=== PATIENT | male | born 1990 | race Hispanic/Latino ===

== ENCOUNTER 2019-09-23 14:58 | Emergency (ER) | payer OTHER, SELFPAY ==
[2019-09-23 15:13] VITALS: BP 80/50; PULSE 104; RESP 19; TEMP 36.3; O2SAT 99
--- NOTE | 2019-09-23 15:14 | ED.GENADULT ---
HPI - General Adult General Chief complaint: Nausea/Vomiting/Diarrhea Stated complaint: Vomiting/Nausea/Stomach pain Time Seen by Provider: 09/23/19 15:14 Source: patient Mode of arrival: ambulatory Limitations: no limitations History of Present Illness HPI narrative: 28-year-old male patient presents to the [facility] with complaints of nausea, vomiting, diarrhea and abdominal pain that started today. Patient states he has had issues with his gallbladder before in the past but states he has had an ultrasound in the past which did not show anything. Patient states he was supposed to get a CT with dye but never did. Patient denies any fevers that he is aware of. Patient states he has been unable to keep anything down. Patient is actively vomiting on arrival to the clinic today. Related Data Home Medications Medication Instructions Recorded Confirmed No Home Medications 09/23/19 09/23/19 Allergies Allergy/AdvReac Type Severity Reaction Status Date / Time No Known Allergies Allergy Unverified 09/23/19 15:23 Review of Systems Review of Systems: Narrative: CONSTITUTIONAL: Denies fever, chills, or sweats. EYES: Denies visual changes, redness, or discharge. ENT: Denies rhinorrhea, congestion, sore throat, or otalgia. CARDIOVASCULAR: Denies chest pain, palpitations, or edema. RESPIRATORY: Denies cough or dyspnea. GASTROINTESTINAL: Positive abdominal pain, nausea, vomiting, and diarrhea. GENITOURINARY: Denies dysuria or hematuria. SKIN: Denies rash or itching. MUSCULOSKELETAL: Denies back pain, joint pain, or myalgia. NEUROLOGIC: Denies headache, numbness, or weakness. PSYCHIATRIC: Denies anxiety or depression. PMFSH Social History Social History Gender identity (if verbalized by the patient): Male Exam Narrative: Exam Narrative: GENERAL: Well-appearing, well-nourished, and in no acute distress. HEAD: Normocephalic, atraumatic. EYES: PERRLA and EOMI. ENT: Nares clear, no rhinorrhea or epistaxis. Mucous membranes moist. NECK: Supple. No lymphadenopathy CHEST: Clear to auscultation. No respiratory distress. HEART: Regular rate and rhythm. No murmur heard. Normal peripheral pulses. ABDOMEN: Soft, flat, nondistended. No guarding, rebound tenderness, or rigid. No pulsatilla masses. Hypoactive bowel sounds present in all four quadrants. No organomegaly. Negative Staples?s sign. No periumbicial tenderness. No Supra public tenderness or distension. Good femoral pulses bilaterally. No hernia noted. No scars or surface trauma. EXTREMITIES: Normal range of motion. No edema. SKIN: Warm, dry, no rash. NEURO: No focal deficits. Alert and oriented x3. Course Vital Signs Vital signs: Vital Signs Temperature 36.3 C L 09/23/19 15:13 Pulse Rate 104 H 09/23/19 15:13 Respiratory Rate 19 09/23/19 15:13 Blood Pressure 80/50 L 09/23/19 15:13 Pulse Oximetry 99 09/23/19 15:13 Temperature 36.3 C L 09/23/19 15:13 Pulse Rate 104 H 09/23/19 15:13 Respiratory Rate 19 09/23/19 15:13 Blood Pressure 80/50 L 09/23/19 15:13 Pulse Oximetry 99 09/23/19 15:13 Transfer Transfered to: [facility] Transfer rationale: Nausea, vomiting, diarrhea and abdominal pain Accepting physician: Dr. Carroll Transfer comments: On spoke with the charge nurse at [facility] ER and gave her report on patient that we are sending over with complaints of nausea, vomiting, abdominal pain that started today. Patient is actively vomiting on arrival to the [facility] care. Patient was given 4 mg of ODT Zofran. Patient does have a below blood pressure of 80/50 and is currently looking for a ride to the ER however if he does not find a ride we will be sending my by EMS. Charge nurse verbalizes understanding denies any other questions or concerns at this time. Medical Decision Making Differential Diagnosis Differential Diagnosis: Differential diagnosis: Appendicitis, ovarian torsion, gallbladder disease, ovarian torsion
[2019-09-23] MEDS: ONDANSETRON HCL ODT 4 MG TABLET PO (15:17)
--- NOTE | 2019-09-23 15:29 | PC.NURSE ---
Pt found a friend to drive him to hospital, states after Zofran he is no longer nauseated, but still has RUQ pain. Lights dimmed for comfort while he awaits arrival of friend.
--- NOTE | 2019-09-23 15:58 | PC.NURSE ---
155- Pt decided to go by EMS- [facility] took pt. IV started
== END 2019-09-23 15:52 | disposition short-term general hospital (02) ==
PROVIDERS: Emergency Provider Nurse Practitioner Family
DX: R11.2 Nausea with vomiting, unspecified (principal)
CPT/HCPCS: 99215; A9270; G0463

== ENCOUNTER 2019-09-23 16:25 | Emergency (ER) | payer OTHER, SELFPAY ==
[2019-09-23 16:34] VITALS: BP 111/59; PULSE 101; RESP 16; TEMP 37.2; O2SAT 100
[2019-09-23 16:49] LABS: Basophils Percent Auto 0.3 % (0.2-1.2); Eosinophils Absolute Auto 0.1 K/mm3 (0-0.3); Eosinophils Percent Auto 0.5 % (0-4.4); Hemoglobin 17.1 g/dL (14.0-18.0); Immature Granulocyte Absolute 0.02 K/mm3 (0.00-0.031); Immature Granulocyte Percent A 0.2 % (0-0.5); Lymphocytes Absolute Auto 0.45 K/mm3 (0.9-3.2); Lymphocytes Percent Auto 4.7 % (18.3-44.2); Mean Corpuscular HGB Conc 34.9 g/dl (32-36); Mean Corpuscular Hemoglobin 30.4 pg (26-34); Monocytes Absolute Auto 0.7 K/mm3 (0.1-0.6); Monocytes Percent Auto 7.5 % (2.6-8.5); Neutrophils Absolute Auto 8.3 K/mm3 (1.3-6.7); Neutrophils Percent Auto 86.8 % (45.5-73.1); Platelet Count Result 320 k/mm3 (150-375); Red Blood Count 5.63 M/mm3 (4.6-6.20); Red Cell Distribution Width 12.5 % (11.5-14.5); White Blood Count 9.6 K/mm3 (4.5-10.0)
[2019-09-23 16:58] LABS: Alanine Aminotransferase 62 U/L (4-50); Albumin Level 4.8 g/dL (3.5-5.1); Alkaline Phosphatase 80 U/L (38-126); Aspartate Amino Transferase 39 U/L (17-59); Blood Urea Nitrogen 18 mg/dL (9-20); Calcium 9.7 mg/dL (8.4-10.2); Carbon Dioxide 23 mmol/L (22-30); Chloride 107 mmol/L (98-107); Estimated CRCL calculation 107 ml/min; Estimated Glomerular Filt Rate > 60; Glucose 95 mg/dL (75-110); Lipase 81 U/L (23-300); Sodium 138 mmol/L (137-145)
[2019-09-23 17:24] LABS: Add Urine Microscopic? YES; Appearance Urine Clear (Clear); Bilirubin Urine Negative (Negative); Blood Urine Negative (Negative); Color Urine Yellow (Yellow); Glucose Urine UA Negative (Negative); Ketones Urine Trace mg/dL (Negative); Leukocyte Esterase Ur Negative LEU/UL (Negative); Mucus Urine Rare /lpf; Nitrate Urine Negative (Negative); Protein Urine 1+ mg/dL (Negative); Specific Grav Ur 1.027 (1.001-1.035); Urobilinogen Urine Negative mg/dL (<2.0); WBC Urine 0-3 /hpf
[2019-09-23 17:52] VITALS: BP 107/55; PULSE 76; RESP 16; O2SAT 100
--- NOTE | 2019-09-23 19:07 | ED.GENADULT ---
HPI - General Adult General Chief complaint: Nausea/Vomiting/Diarrhea Stated complaint: N/V ABD PAIN FROM [facility] Time Seen by Provider: 09/23/19 17:41 Source: patient Mode of arrival: ambulatory Limitations: no limitations History of Present Illness HPI narrative: 28-year-old male Basically healthy Has been experiencing episodes of epigastric and right upper quadrant discomfort particularly following fatty meals for a while Biliary disease had been suspected by his PCP He is already had a gallbladder ultrasound which he reports looked fine He is also modified his diet to cut back on the fatty foods which were particularly troubling Today he had a somewhat worse than usual episode associated with some nausea The symptoms are currently resolved Plan discussed with his doctor was to perhaps do a HIDA scan Onset (ago): hour(s) Location: abdomen Radiation: non-radiation Severity: moderate Quality: other (crampy) Pain Consistency: intermittent and now resolved Exacerbating factors: eating Related Data Home Medications Medication Instructions Recorded Confirmed Adults Multivitamin 09/23/19 Allergies Allergy/AdvReac Type Severity Reaction Status Date / Time No Known Allergies Allergy Unverified 09/23/19 15:23 Review of Systems Constitutional: Constitutional: Reports no additional constitutional complaints, Denies chills, Denies fever(s) and Denies weakness ENT: Denies dysphagia and Denies vertigo Cardiovascular: Cardiovascular: Denies chest pain Respiratory: Respiratory: Denies cough and Denies dyspnea Gastrointestinal: Gastrointestinal: Reports as per HPI Genitourinary: Genitourinary: Denies dysuria and Denies urinary frequency Musculoskeletal: Musculoskeletal: Denies back pain and Denies myalgias Neurologic: Denies vertigo, Denies syncope and Denies weakness PMFSH Social History Social History Gender identity (if verbalized by the patient): Male Exam Const: General: healthy appearing, no acute distress and well developed Nutritional Appearance: well nourished Orientation/consciousness: patient oriented x3 (alert) and Other orientation findings (Alert) Limitations: no limitations HENMT: Head: normocephalic and atraumatic Ears: external ears normal General nose exam: No nasal discharge present and no epistaxis Face and sinus: face symmetric Mouth: Yes lip normal, Yes tongue normal and Yes moist mucous membranes Throat: other (No exudate, no erythema) Eyes: Conjunctivae: conjunctivae normal Sclera: sclerae normal EOM: EOMs intact bilaterally Neck: Neck: full ROM, no lymphadenopathy and supple Thyroid: thyroid normal Chest: Chest palpation & inspection: no tenderness Resp: Effort & Inspection: normal respiratory effort Auscultation: clear to auscultation bilaterally, no rales, no rhonchi, no wheezes and other (breath sounds equal) Cardio: Rate: regular rate Rhythm: regular rhythm Heart sounds: no gallops and no murmurs GI: Inspection: non-distended GI Palp: No abdominal tenderness, Yes Soft to palpation and No Tenderness to palpation present (GI) Auscultation: other (bowel sounds present) : General: Yes no CVA tenderness Back/Spine/Pelvis: Back: no CVA tenderness Thoracic/Lumbar Spine: thoracic and lumbar spine normal to inspection Skin: General skin exam: normal color and no rashes or lesions noted Neuro: General: patient oriented x3 (alert), moves all extremities and no focal motor deficits Cranial nerves: Yes facial symmetry Speech: normal speech Motor exam (neuro): Motor abnormalities not present Extrem: General: normal to inspection, full ROM and no pedal edema Psych: Affect: normal affect Course Course Emergency Course: Labs normal Symptoms resolved Previous gallbladder ultrasound was okay Okay for PCP follow-up will give him a trial of Levsin Vital Signs Vital signs: Vital Signs Temp
== END 2019-09-23 20:38 | disposition home or self-care (01) ==
PROVIDERS: Emergency Medicine; Emergency Provider Emergency Medicine
DX: R10.13 Epigastric pain (principal)
CPT/HCPCS: 36415; 80053; 81001; 83690; 85025; 99283

== ENCOUNTER 2020-01-07 07:38 | Outpatient (CLI) | payer OTHER, SELFPAY ==
--- NOTE | ~2020-01-07 | NM_ITS ---
EXAMINATION: NM hepatobiliary w pharm DATE: 01/07/2020 13:34 INDICATION: Right upper quadrant abdominal pain COMPARISON: None. TECHNIQUE: 4.9 mCi Tc-99m mebrofenin (Choletec) was administered intravenously. Scintigraphic images of the abdomen were obtained for one hour. 2 mcg sincalide (Kinevac) was administered by slow intrav enous infusion, and imaging was continued for 30 minutes. Gallbladder ejection fraction was calculate d by the technologist. FINDINGS: There is normal clearance of radiotracer from the blood pool. There is homogeneous tracer uptake by t he liver. Activity progresses to the gallbladder and bowel. The gallbladder ejection fraction (GBEF) is 69% (normal 10-90%, but most patient with gallbladder dysfunction have GBEF < 35% which does over lap with the normal range). IMPRESSION: 1. Normal hepatobiliary scan. Reviewed, dictated and finalized at location A.
== END 2020-01-07 07:39 | disposition home or self-care (01) ==
PROVIDERS: PCP Physician Assistant; Visit Provider Physician Assistant
DX: R10.11 Right upper quadrant pain (principal)
CPT/HCPCS: 78227; A9537; J2805

== ENCOUNTER → 2020-08-26 15:30 | Outpatient (CLI) | payer BC, SELFPAY ==
--- NOTE | ~2020-08-26 | XR_ITS ---
EXAMINATION: XR chest 2V 08/26/2020 15:49 INDICATION: Chest wall and sternal pain PROCEDURE: 2 view chest COMPARISON: 05/10/2015 FINDINGS: The lungs are clear. The cardiomediastinal silhouette is within normal limits. There are no pleural effusions. There is no pneumothorax suspected. IMPRESSION: 1: NO ACUTE CARDIOPULMONARY DISEASE. Reviewed, dictated and finalized at location B. O PRINTER
== END ==
PROVIDERS: PCP Physician Assistant; Visit Provider Physician Assistant
DX: R07.89 Other chest pain (principal)
CPT/HCPCS: 71046

== ENCOUNTER 2020-09-15 13:04 | Outpatient (CLI) | payer BC, SELFPAY ==
--- NOTE | ~2020-09-15 | CT_ITS ---
EXAMINATION: CT abdomen w con EXAM DATE: 09/15/2020 13:26 INDICATION: R10.11 - Right upper quadrant pain. TECHNIQUE: Spiral CT of the abdomen was performed following intravenous injection of 100 mL Omnipaque 350. Axial, coronal and sagittal images were reviewed. The dose-length product (DLP) for this exam ination was 344.23 mGy-cm. The exposure was tailored according to patient size (auto mA exposure con trol), and iterative reconstruction (ASIR) was used as additional dose reduction technique. There is no prior study for comparison. FINDINGS: There is a 9 mm right liver dome cyst. The liver, spleen, adrenal glands and pancreas are o therwise unremarkable. Gallbladder is unremarkable. No biliary obstruction. Portal and splenic vei ns are patent. Kidneys enhance symmetrically. There is no hydronephrosis. There is no retroperit hughes lymphadenopathy. The stomach and small bowel are unremarkable. There is moderate amount of colonic stool. No free i ntraperitoneal gas. The heart is normal in size. There are no pericardial or pleural effusions. T he lung bases are unremarkable. There are no osteoblastic or osteolytic lesions identified. IMPRESSION: 1. No acute intra-abdominal findings. Reviewed, dictated and finalized at location A. [employer] EDUC[employer] TE[employer]ER
== END 2020-09-15 13:05 | disposition home or self-care (01) ==
PROVIDERS: PCP Physician Assistant; Visit Provider Internal Medicine Gastroenterology
DX: R10.11 Right upper quadrant pain (principal)
CPT/HCPCS: 74160; Q9967

== ENCOUNTER → 2020-09-27 03:02 | Outpatient (CLI) | payer BC, SELFPAY ==
[2020-09-27 21:05] LABS: SARS-CoV-2 RNA PCR Negative
== END ==
PROVIDERS: PCP Physician Assistant; Visit Provider Internal Medicine Gastroenterology
DX: Z01.812 Encounter for preprocedural laboratory examination (principal); Z20.822 Contact with and (suspected) exposure to COVID-19
CPT/HCPCS: C9803; U0003; U0005

== ENCOUNTER 2020-09-30 01:20 | Day surgery (SDC) | payer BC, SELFPAY ==
[2020-09-16 09:30] VITALS: BMI 30.2
--- NOTE | 2020-09-30 12:50 | WPDANESEPPF ---
Anes - Initial Pre Proc Eval Procedure: Operation Date: 09/30/20 14:00 Proposed Procedures p Esophagogastroduodenoscopy - Jose Antonio Cross MD Date/Time: 09/30/20 12:50 Surgeon: Jose Antonio Cross MD Pre Op Diagnosis: RUQ pain Patient Data Age: 29 Gender: M Height: 5 ft 8 in Weight: 90 kg Allergies Allergy/AdvReac Type Severity Reaction Status Date / Time No Known Allergies Allergy Verified 09/30/20 13:02 Home Medications Medication Instructions Recorded Confirmed Type omeprazole 40 mg capsule,delayed 40 mg PO DAILY 09/09/20 09/16/20 History release Patient hx anesthesia problems: none Family hx anesthesia problems: none PMFSH Past Medical History Medical History (Updated 09/30/20 @ 12:50 by Sunday Das MD) GERD (gastroesophageal reflux disease) RUQ pain Social History Social History (Updated 09/09/20 @ 09:17 by Karen Walker CMA) Smoking status: Never smoker Tobacco type: cigars Second hand tobacco smoke exposure: No Alcohol intake: never Substance use: never Substance use type: does not use Living arrangements: with family Gender identity (if verbalized by the patient): Male Spiritual care concerns: No Anes - Eval Final PreProcedure Day of Procedure 09/30/20 12:50 Patient weight: overweight Heart: regular rate and rhythm Lungs: clear to auscultation Airway: Mallampati scale class II Neurological: alert and oriented Last oral intake: >/= 8 hours ASA classification: II Emergent: no Anesthetic plan: proceed Anesthesia type and monitoring: general GIVS and standard monitoring Informed Consent: The patient's anesthetic plan and its attendant risks and benefits were discussed with the patient/family/POA. Questions were solicited and answers provided to the satisfaction of the patient/family/POA.
[2020-09-30 13:03] VITALS: BP 142/67; PULSE 53; RESP 18; TEMP 36.3; O2SAT 100; BMI 33.0
[2020-09-30] MEDS: LACTATED RINGERS 1,000 ML 150 ML IV CONT (13:18)
--- NOTE | 2020-09-30 14:20 | WPDHPUPDATE1 ---
History and Physical Update Update Date/Time: 09/30/20 14:20 History and Physical has been reviewed, including an updated exam of the patient. There are NO changes in the patient's condition. Risks, benefits, and alternatives have been discussed and questions answered. Patient agrees to proceed with procedure.
[2020-09-30 14:32] VITALS: BP 107/62; PULSE 68; RESP 16; O2SAT 98
[2020-09-30 14:43] VITALS: BP 101/57; PULSE 53; RESP 16; O2SAT 98
[2020-09-30 14:51] VITALS: BP 113/71; PULSE 53; RESP 16; O2SAT 98
== END 2020-09-30 15:06 | disposition home or self-care (01) ==
PROVIDERS: PCP Physician Assistant; Visit Provider Internal Medicine Gastroenterology
PROC: 0DJ08ZZ Inspection of Upper Intestinal Tract, Via Natural or Artificial Opening Endoscopic (ICD-10-PCS; CPT 43235; principal; 2020-09-30 14:00)
DX: R10.11 Right upper quadrant pain (principal); K21.9 Gastro-esophageal reflux disease without esophagitis; K29.50 Unspecified chronic gastritis without bleeding
CPT/HCPCS: 43239; 88305; J2704; J7120

== ENCOUNTER → 2022-03-06 15:33 | Outpatient (CLI) | payer BC, SELFPAY ==
--- NOTE | ~2022-03-06 | XR_ITS ---
EXAM: XR lumbar spine 2-3V DATE: 03/06/2022 16:02 HISTORY: M54.50 CHRONIC LOW BACK PAIN WITHOUT SCIATICA . COMPARISON: Thoracic spine x-rays, same date. FINDINGS: 6 nonrib-bearing lumbar-type vertebral bodies. This is likely due to absent/hypoplastic ri bs at T12. Last fully formed disc is designated L5-S1 for this examination. Partial sacralization on the right at L5, with pseudoarthrosis. Pedicles intact. Normal vertebral body alignment. Vertebral evon dy heights preserved. Disc spaces maintained. Normal facets and posterior elements. No fracture or di slocation. IMPRESSION: Partial sacralization on the right at L5, with pseudoarthrosis, which can be a source of pain in some patients. Reviewed, dictated and finalized at location K. IMPRESSION: Partial sacralization on the right at L5, with pseudoarthrosis, whi ch can be a source of pain in some patients.
--- NOTE | ~2022-03-06 | XR_ITS ---
EXAM: XR thoracic spine 3V DATE: 03/06/2022 16:02 HISTORY: UNSPECIFIED BACK PAIN LATERALLY RT SIDE MID TO LOW BACK . COMPARISON: None available. FINDINGS: Vertebral body alignment intact. Vertebral body heights preserved. No disc space narrowing . No traumatic malalignment or fracture. Visualized lung parenchyma is clear. IMPRESSION: No acute fracture or traumatic malalignment in the thoracic spine. Reviewed, dictated and finalized at location K.
== END ==
PROVIDERS: PCP Physician Assistant; Visit Provider Physician Assistant
DX: M54.50 Low back pain, unspecified (principal); G89.29 Other chronic pain
CPT/HCPCS: 72072; 72100

== ENCOUNTER 2022-10-05 11:10 | Outpatient (CLI) | payer BC, SELFPAY ==
[2022-10-05 11:28] LABS: Hematocrit 43.1 % (42.0-52.0); Hemoglobin 14.7 g/dL (14.0-18.0); Mean Corpuscular HGB Conc 34.1 g/dl (32-36); Mean Corpuscular Hemoglobin 30.2 pg (26-34); Mean Corpuscular Volume 88.7 fl (80-100); Mean Platelet Volume 9.6 fl (7.4-10.4); Platelet Count Result 307 k/mm3 (150-375); Red Blood Count 4.86 M/mm3 (4.6-6.20); Red Cell Distribution Width 12.2 % (11.5-14.5); White Blood Count 3.6 K/mm3 (4.5-10.0)
[2022-10-05 11:44] LABS: Alanine Aminotransferase 49 U/L (6-50); Albumin Level 4.4 g/dL (3.5-5.1); Alkaline Phosphatase 67 U/L (38-126); Anion Gap 7 mmol/L (8-16); Aspartate Amino Transferase 32 U/L (17-59); Bilirubin,Total 0.9 mg/dL (0.2-1.3); Blood Urea Nitrogen 13 mg/dL (9-20); Calcium 9.1 mg/dL (8.4-10.2); Carbon Dioxide 24 mmol/L (22-30); Chloride 110 mmol/L (98-107); Estimated Glomerular Filt Rate > 60; Glucose 99 mg/dL (65-110); Lipase 63 U/L (23-300); Potassium 4.1 mmol/L (3.4-5.0); Sodium 141 mmol/L (137-145)
== END 2022-10-05 11:11 | disposition home or self-care (01) ==
LOC: ANHLAB 11:11
PROVIDERS: PCP Physician Assistant; Visit Provider Internal Medicine Gastroenterology
DX: R10.11 Right upper quadrant pain (principal)
CPT/HCPCS: 36415; 80053; 83690; 85027

== ENCOUNTER 2022-10-17 09:08 | Outpatient (CLI) | payer BC, SELFPAY ==
--- NOTE | ~2022-10-17 | US_ITS ---
EXAMINATION: US abdomen complete DATE: 10/17/2022 09:55 INDICATION: R10.11 - Right upper quadrant pain TECHNIQUE: Multiple grayscale and Doppler ultrasound images of the abdomen were obtained. COMPARISON: CT abdomen pelvis 09/15/2020. FINDINGS: Pancreas not visualized. The liver is normal with normal echogenicity and echotexture. 1.1 cm simple right lobe cyst. No surface nodularity. Normal hepatopetal flow in the main portal vein. Th e gallbladder is normal with no abnormal wall thickening, pericholecystic fluid or stones. The common bile duct measures 6 mm. There was no sonographic Staples sign. Proximal aorta not visualized, obscur ed by bowel gas. Mid aorta measures 2.5 cm. Distal aorta measures 1.7 cm. The visualized portions of the inferior vena cava are normal. The right kidney measures 10.0 x 6.0 x 5.3 cm. The left kidney measures 11.0 x 5.5 x 4.9 cm. The kidn eys demonstrate normal parenchymal echogenicity. There is no hydronephrosis. The spleen is normal in appearance and measures 9.8 cm. IMPRESSION: Normal gallbladder findings. Borderline common bile duct dilation, correlate with biliary labs. Proxi mal aorta not visualized, with mild ectasia of the mid abdominal aorta, of doubtful clinical signific ance patient of this age. Consider evaluation with a dedicated abdominal aortic ultrasound if there i s a history of vasculitis, connective tissue disorder, or abdominal trauma. Reviewed, dictated and finalized at [facility]. IMPRESSION: Normal gallbladder findings. Borderline common bile duct dilation, correlate wi th biliary labs. Proximal aorta not visualized, with mild ectasia of the mid ab dominal aorta, of doubtful clinical significance patient of this age. Consider evaluation with a dedicated abdominal aortic ultrasound if there is a history o f vasculitis, connective tissue disorder, or abdominal trauma.
== END 2022-10-17 09:09 | disposition home or self-care (01) ==
PROVIDERS: PCP Physician Assistant; Visit Provider Internal Medicine Gastroenterology
DX: R10.11 Right upper quadrant pain (principal)
CPT/HCPCS: 76700

== ENCOUNTER 2022-10-25 02:35 | Day surgery (SDC) | payer BC, SELFPAY ==
[2022-10-10 13:43] VITALS: BMI 32.0
[2022-10-25 08:28] VITALS: BP 118/68; PULSE 54; RESP 16; TEMP 36; O2SAT 100; BMI 31.0
[2022-10-25] MEDS: LACTATED RINGERS 1,000 ML 150 ML IV CONT (08:38)
--- NOTE | 2022-10-25 08:42 | WPDANESEPPF ---
Anes - Initial Pre Proc Eval Procedure: Operation Date: 10/25/22 09:45 Proposed Procedures p Colonoscopy - Jose Antonio Cross MD Date/Time: 10/25/22 08:42 Surgeon: Jose Antonio Cross MD Pre Op Diagnosis: RUQP, melena Patient Data Age: 31 Gender: M Height: 1.73 m Weight: 92.7 kg Last Vital Signs Temp 36.0 C L 10/25/22 08:28 Pulse 54 L 10/25/22 08:28 Resp 16 10/25/22 08:28 BP 118/68 10/25/22 08:28 Pulse Ox 100 10/25/22 08:28 O2 Del Method Room Air 10/25/22 08:28 Allergies Allergy/AdvReac Type Severity Reaction Status Date / Time No Known Allergies Allergy Verified 10/25/22 08:25 Home Medications Medication Instructions Recorded Confirmed Type pantoprazole 40 mg tablet,delayed 40 mg PO QAM 10/05/22 10/25/22 History release Patient hx anesthesia problems: none Family hx anesthesia problems: none Results Review: All pre-operative results and documents have been reviewed as part of the pre-operative evaluation. [facility] Past Medical History Medical History (Updated 10/25/22 @ 08:43 by Pedro Simental MD) Blood in stool GERD (gastroesophageal reflux disease) Obesity RUQ pain Social History Social History Smoking status: Never smoker Tobacco type: cigars Second hand tobacco smoke exposure: No Alcohol intake: current Drinks per week: 2 Substance use: never Substance use type: does not use Living arrangements: with family Occupation/Education: occupation Gender identity (if verbalized by the patient): Male Spiritual care concerns: No Anes - Eval Final PreProcedure Day of Procedure 10/25/22 08:42 Patient weight: obese Heart: regular rate and rhythm Lungs: clear to auscultation Airway: Mallampati scale class II Neurological: alert and oriented Last oral intake: >/= 8 hours ASA classification: II Emergent: no Anesthetic plan: proceed Anesthesia type and monitoring: general GIVS and standard monitoring Results Review: All pre-operative results and documents have been reviewed as part of the pre-operative evaluation. Informed Consent: The patient's anesthetic plan and its attendant risks and benefits were discussed with the patient/family/POA. Questions were solicited and answers provided to the satisfaction of the patient/family/POA.
--- NOTE | 2022-10-25 09:01 | WPDHPUPDATE1 ---
History and Physical Update Update Date/Time: 10/25/22 09:01 History and Physical has been reviewed, including an updated exam of the patient. There are NO changes in the patient's condition. Risks, benefits, and alternatives have been discussed and questions answered. Patient agrees to proceed with procedure.
[2022-10-25 09:16] VITALS: BP 90/53; PULSE 61; RESP 12; O2SAT 98
[2022-10-25 09:26] VITALS: BP 81/48; PULSE 51; RESP 13; O2SAT 98
[2022-10-25 09:36] VITALS: BP 99/56; PULSE 52; RESP 18; O2SAT 100
== END 2022-10-25 09:47 | disposition home or self-care (01) ==
PROVIDERS: PCP Physician Assistant; Visit Provider Internal Medicine Gastroenterology
PROC: 0DJD8ZZ Inspection of Lower Intestinal Tract, Via Natural or Artificial Opening Endoscopic (ICD-10-PCS; CPT 45378; principal; 2022-10-25 09:45)
DX: K63.5 Polyp of colon (principal); K64.8 Other hemorrhoids; K21.9 Gastro-esophageal reflux disease without esophagitis; E66.9 Obesity, unspecified; Z68.31 Body mass index [BMI] 31.0-31.9, adult
CPT/HCPCS: 45380; 88305; J2704; J7120

== ENCOUNTER 2024-03-28 13:30 | Outpatient (CLI) | payer BC, SELFPAY ==
--- NOTE | ~2024-03-28 | US_ITS ---
EXAMINATION: US soft tissue head and neck DATE: 03/28/2024 13:44 INDICATION: Neck pain. TECHNIQUE: Multiple grayscale and Doppler ultrasound images of the head and neck were obtained. COMPARISON: None FINDINGS: There are normal lymph nodes in right neck in the patient's area of concern. IMPRESSION: 1. No abnormal mass or lymphadenopathy in the patient's area of concern in right neck. Reviewed, dictated and finalized at location A. IMPRESSION: 1. No abnormal mass or lymphadenopathy in the patient's area of concern in righ t neck.
== END 2024-03-28 13:31 | disposition home or self-care (01) ==
PROVIDERS: PCP Physician Assistant; Visit Provider Physician Assistant
DX: M54.2 Cervicalgia (principal)
CPT/HCPCS: 76536